=== PATIENT | male | born 1985 | race Caucasian/White ===

== ENCOUNTER 2017-01-28 09:18 | Emergency (ER) | payer OTHER, BC ==
[~2017-01-28] VITALS: Ht 182.9 cm; Wt 117.6 kg
[~2017-01-28 09:18] MED LIST: POLY10O LEFT EYE
[2017-01-28 09:25] VITALS: BP 135/96; PULSE 83; RESP 15; TEMP 98; O2SAT 96
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
[2017-01-28] MEDS ORDERED: CYCL1TAB29 PO ×2 (11:39→11:40)
[2017-01-28] MEDS ORDERED: MOTR200T4 PO ×2 (11:39→11:40)
== END 2017-01-28 11:48 | disposition home or self-care (01) ==
LOC: PHED 09:18 → PHEFT 11:48
DX: S46.911A Strain of unspecified muscle, fascia and tendon at shoulder and upper arm level, right arm, initial encounter (principal); V49.9XXA Car occupant (driver) (passenger) injured in unspecified traffic accident, initial encounter; Y93.9 Activity, unspecified; Y92.9 Unspecified place or not applicable; Y99.9 Unspecified external cause status
CPT/HCPCS: 73030; 99283

== ENCOUNTER 2017-02-04 09:42 | Emergency (ER) | payer BC, OTHER ==
[~2017-02-04] VITALS: Ht 182.9 cm; Wt 117.7 kg
[~2017-02-04 09:42] MED LIST changes: +CYCL1TAB29 PO; +MOTR200T4 PO; -POLY10O LEFT EYE
[2017-02-04 10:14] VITALS: BP 120/76; PULSE 92; RESP 16; TEMP 99.1; O2SAT 97
[2017-02-04] MEDS ORDERED: PHENERGAN W CODEIN PO (10:45)
[2017-02-04] MEDS ORDERED: ZITHTAB PO (10:45)
--- NOTE | 2017-02-04 10:45 | PD ---
HPI Chief Complaint: Cold / Flu Symptoms Time Seen by Provider: 10:34 Travel History International Travel<30 days: No Contact w/Intl Traveler<30days: No Traveled to known affect area: No History of Present Illness HPI 31-year-old male complains of coughing congestion and sore throat. Patient states that the sore throat started about a week and a half ago. Patient started having productive cough for the past few days. Patient denies any fever chills. Patient states he has mild aching headache. Patient denies any chest pain or shortness of breath. Patient denies abdominal pain. Patient denies any nausea vomiting diarrhea. PFSH Past Medical History Asthma: Yes Diminished Hearing: No Immunizations Current: Yes Tetanus Vaccination: < 5 Years Influenza Vaccination: No Past Surgical History Other Surgery: Yes (WISDOM TEETH) Social History Alcohol Use: Yes ("it varies") Tobacco Use: No (E CIG) Substance Use: No (MARRIJUANNA OCC) Allergies-Medications (Allergen,Severity, Reaction): Coded Allergies: Benadryl (Verified Allergy, Unknown, Hives, 02/04/17) Reported Meds & Prescriptions Reported Meds & Active Scripts Active Flexeril (Cyclobenzaprine HCl) 10 Mg Tab 10 Mg PO TID Motrin Ib (Ibuprofen) 200 Mg Tab 600 Mg PO Q6H PRN Review of Systems General / Constitutional: No: Fever Eyes: No: Visual changes HENT: Positive: Sore Throat, No: Headaches Cardiovascular: No: Chest Pain or Discomfort Respiratory: Positive: Cough, No: Shortness of Breath Gastrointestinal: No: Abdominal Pain Genitourinary: No: Dysuria Musculoskeletal: No: Pain Skin: No Rash Neurologic: No: Weakness Psychiatric: No: Depression Endocrine: No: Polydipsia Hematologic/Lymphatic: No: Easy Bruising Physical Exam Narrative GENERAL: Well-nourished, well-developed patient. SKIN: Warm and dry. HEAD: Normocephalic. EYES: No scleral icterus. No injection or drainage. TM: Clear. Throat: Mild erythematous. NECK: Supple, trachea midline. No JVD or lymphadenopathy. CARDIOVASCULAR: Regular rate and rhythm without murmurs, gallops, or rubs. RESPIRATORY: Breath sounds equal bilaterally. No accessory muscle use. GASTROINTESTINAL: Abdomen soft, non-tender, nondistended. MUSCULOSKELETAL: No cyanosis, or edema. BACK: Nontender without obvious deformity. No CVA tenderness. Data Data Last Documented VS Vital Signs Date Time Temp Pulse Resp B/P Pulse Ox O2 Delivery O2 Flow Rate FiO2 02/04/17 10:14 99.1 92 16 120/76 97 MDM Medical Decision Making Medical Screen Exam Complete: Yes Emergency Medical Condition: Yes Differential Diagnosis Differential diagnosis including pharyngitis, bronchitis, pneumonia, viral syndrome. Narrative Course 31-year-old male with sore throat, coughing congestion. Diagnosis Primary Impression: Bronchitis Additional Impression: Viral syndrome Patient Instructions: General Instructions Additional Instructions: Take medications as directed. Tylenol or ibuprofen for fever aching pain. Follow-up with personal physician. Return if worse. Med/Other Pt SpecificInfo: Prescription(s) given Scripts [Phenergan W Codein] No Conflict Check10 Ml PO Q6HR #120 Prov:Christiano Gomez MD 02/04/17 Azithromycin (Zithromax Z-Dinesh)250 Mg [id number] Mg PO DIRECTED #1 DSPK 500 MG (2 tabs) day 1, then 1 tab days 2-5. Prov:Christiaon Gomez MD 02/04/17 Disposition: 01 DISCHARGE HOME Condition: Stable Christiano Gomez MD Feb 04, 2017 10:45
== END 2017-02-04 11:12 | disposition home or self-care (01) ==
LOC: PHED 09:42
DX: J40 Bronchitis, not specified as acute or chronic (principal); B34.9 Viral infection, unspecified; R07.0 Pain in throat; R51 Headache; Z72.0 Tobacco use; Z87.09 Personal history of other diseases of the respiratory system
CPT/HCPCS: 99283

== ENCOUNTER 2017-12-25 08:40 | Emergency (ER) | payer BC ==
[~2017-12-25] VITALS: Ht 182.9 cm; Wt 116.9 kg
[~2017-12-25 08:40] MED LIST changes: +CYCL10TA PO; -CYCL1TAB29 PO; +PHENERGAN W CODEIN PO; +ZITHTAB PO
[2017-12-25 08:42] VITALS: BP 135/85; PULSE 110; RESP 18; TEMP 97.8; O2SAT 97
[2017-12-25] MEDS ORDERED: IBUP-232 PO (08:50)
[2017-12-25] MEDS ORDERED: PHEN60SU RECTAL (08:50)
[2017-12-25] MEDS ORDERED: ANUC25SU RECTAL (09:19)
[2017-12-25] MEDS ORDERED: HYDR-3516 PO (09:19)
--- NOTE | 2017-12-25 09:19 | PD ---
HPI Chief Complaint: GI Complaint Time Seen by Provider: 08:51 Travel History International Travel<30 days: No Contact w/Intl Traveler<30days: No Traveled to known affect area: No History of Present Illness HPI This 32-year-old male says he been having pain in the rectum since Sunday. He had the flu and he had some diarrhea. He started having some regular bowel movements Sunday. He noted some bright red blood when he cleaned himself a couple of days ago. He has some fairly constant pain in the anus. He has been using stool softeners which seemed to help he's been using some Preparation H which seems to help. He has trouble sleeping at night due to the discomfort. PFSH Past Medical History Asthma: Yes Diminished Hearing: No Immunizations Current: Yes Influenza Vaccination: No Past Surgical History Other Surgery: Yes (WISDOM TEETH) Social History Alcohol Use: Yes ("it varies") Tobacco Use: No (E CIG) Substance Use: No (MARRIJUANNA OCC) Allergies-Medications (Allergen,Severity, Reaction): Coded Allergies: diphenhydramine (Unverified Allergy, Unknown, Hives, 12/25/17) Reported Meds & Prescriptions Reported Meds & Active Scripts Active Reported Ibuprofen 600 Mg Tab 600 Mg PO TID PRN Preparation H Supp (Phenylephrine-Morris Butter Supp) 0.25-88.44 % Supp 1 Supp RECTAL QID PRN Review of Systems Except as stated in HPI: all other systems reviewed are Neg General / Constitutional: No: Fever, Chills Eyes: No: Blurred Vision HENT: No: Headaches Cardiovascular: No: Chest Pain or Discomfort Respiratory: No: Shortness of Breath Gastrointestinal: Positive: Hematochezia, Changes in Bowel Habits, No: Nausea, Vomiting, Abdominal Pain, Constipation Genitourinary: No: Urgency, Frequency Musculoskeletal: No: Myalgias, Arthralgias Skin: No Rash, No Itching Physical Exam Narrative GENERAL: A little male SKIN: Focused skin assessment warm/dry. HEAD: Atraumatic. Normocephalic. EYES: Pupils equal and round. No scleral icterus. No injection or drainage. ENT: No nasal bleeding or discharge. Mucous membranes pink and moist. NECK: Trachea midline. No JVD. GASTROINTESTINAL: Abdomen soft, non-tender, nondistended. Hepatic and splenic margins not palpable. Rectal exam there are no lesions noted he is quite tender on digital exam. No masses are noted. There is no blood on the examining finger MUSCULOSKELETAL: No obvious deformities. No clubbing. No cyanosis. No edema. NEUROLOGICAL: Awake and alert. No obvious cranial nerve deficits. Motor grossly within normal limits. Normal speech. PSYCHIATRIC: Appropriate mood and affect; insight and judgment normal. Data Data Last Documented VS Vital Signs Date Time Temp Pulse Resp B/P (MAP) Pulse Ox O2 Delivery O2 Flow Rate FiO2 12/25/17 08:42 97.8 110 18 135/85 (102) 97 MDM Medical Decision Making Medical Screen Exam Complete: Yes Emergency Medical Condition: Yes Medical Record Reviewed: Yes Differential Diagnosis Differential includes proctitis, anal fissure, hemorrhoid Narrative Course Patient does have complaint of significant pain which makes me think is most likely be a fissure. I will prescribe Anusol and some Lortab for pain and have recommended that he continue using stool softeners. If this treatment does not relieve his symptoms he needs to follow up with gi Diagnosis Primary Impression: Anal fissure Scripts Hydrocortisone Acetate Supp (Anucort-Hc Supp) 25 Mg Supp 25 MG RECTAL BID for Hemorrhoids for 7 Days, #14 SUPP 0 Refills Prov: Vik Rodriguez MD 12/25/17 Hydrocodone-Acetaminophen (Hydrocodone-Acetaminophen) 5-325 mg Tab 1 TAB PO Q4H Y for PAIN, #15 TAB 0 Refills Prov: Vik Rodriguez MD 12/25/17 Disposition: 01 DISCHARGE HOME Condition: Stable Vik Rodriguez MD Dec 25, 2017 09:19
== END 2017-12-25 09:45 | disposition home or self-care (01) ==
LOC: PHED 08:40
DX: K60.2 Anal fissure, unspecified (principal); J45.909 Unspecified asthma, uncomplicated; Z88.8 Allergy status to other drugs, medicaments and biological substances
CPT/HCPCS: 99284